=== PATIENT | female | born 1935 | race Caucasian/White ===

== ENCOUNTER 2022-07-27 09:23 | Emergency (ER) | payer MEDICARE, OTHER ==
[~2022-07-27] VITALS: Ht 160 cm; Wt 75.4 kg
[2022-07-27 09:36] VITALS: BP 135/66
[2022-07-27] MEDS ORDERED: PRED20TA5 PO (11:11)
[2022-07-27] MEDS ORDERED: IBUP-2213 PO (11:11)
--- NOTE | 2022-07-27 11:20 | NUR ---
86 y/o female bib self from home, pt presents to ed with c/o bl leg pain for 2 months with itching. pt is denying pain at this time. pt also states she is having low back pain for 1 week, describes it as dull intermittent 3/10 pain. denies n/v/d, dysuria, hematuria, fall, or overexertion or trauma to area. a&ox4, ambulates with steady gait. pmh: Cholecystectomy, Hysterectomy nka med: denies
[2022-07-27 11:35] VITALS: BP 133/62
--- NOTE | 2022-07-27 11:40 | NUR ---
Patient discharged with v/s stable. Written and verbal after care instructions given and explained. Patient alert, oriented and verbalized understanding of instructions. Ambulatory with steady gait. All questions addressed prior to discharge. ID band removed. Patient advised to follow up with PMD. Rx of ibuprofen, prednisone (sent) given. Patient educated on indication of medication including possible reaction and side effects. Opportunity to ask questions provided and answered.
== END 2022-07-27 11:40 | disposition home or self-care (01) ==
LOC: MED 09:23
DX: R21 Rash and other nonspecific skin eruption (principal); M54.50 Low back pain, unspecified; Z88.0 Allergy status to penicillin; Z88.5 Allergy status to narcotic agent; Z90.49 Acquired absence of other specified parts of digestive tract; Z90.710 Acquired absence of both cervix and uterus
CPT/HCPCS: 99283